=== PATIENT | male | born 1970 | race American Indian/Alaskan Native ===

== ENCOUNTER 2020-01-28 13:28 | Day surgery (SDC) | payer BC ==
[~2020-01-28] VITALS: Ht 193 cm; Wt 130.5 kg
[~2020-01-28 13:28] MED LIST: NO HOME MEDICATIONS
[2020-01-28] MEDS ORDERED: FLOMAX 0.40.4 MG/CAP PO (14:12)
[2020-01-28] MEDS ORDERED: PREVACID 30MG30 M1 PO (14:12)
[2020-01-28] MEDS ORDERED: LEXAPRO 10MG10 MG PO (14:14)
[2020-01-28 14:24] VITALS: BP 113/78; PULSE 77; TEMP 97.4
[2020-01-28 17:45] VITALS: TEMP 97.3
[2020-01-28 18:03] VITALS: BP 117/89; PULSE 54
--- NOTE | 2020-01-28 20:45 | NUR ---
Discharge eduction complete, patient verbalized understanding. Patient IV removed, patient understands [facility]. Patient taked to ED doors in wheelchair by this nurse. Patient left by private vehicle.
== END 2020-01-28 20:40 | disposition home or self-care (01) ==
LOC: SDCO 13:28
DX: N35.914 Unspecified anterior urethral stricture, male (principal); R31.0 Gross hematuria; J45.909 Unspecified asthma, uncomplicated; F32.9 Major depressive disorder, single episode, unspecified; Z88.2 Allergy status to sulfonamides; K21.9 Gastro-esophageal reflux disease without esophagitis; F41.9 Anxiety disorder, unspecified
CPT/HCPCS: C1769; C1894; J0690; J2704; J3010; J7120

== ENCOUNTER 2020-01-30 07:49 | Emergency (ER) | payer BC ==
[~2020-01-30] VITALS: Ht 193 cm; Wt 126.4 kg
[~2020-01-30 07:49] MED LIST changes: +FLOMAX 0.40.4 MG/CAP PO; +LEXAPRO 10MG10 MG PO; +PREVACID 30MG30 M1 PO
[2020-01-30 07:57] VITALS: BP 128/86; TEMP 98.4
[2020-01-30 08:49] VITALS: PULSE 64
== END 2020-01-30 08:49 | disposition home or self-care (01) ==
LOC: COL.ER 07:49
DX: J39.2 Other diseases of pharynx (principal); K21.9 Gastro-esophageal reflux disease without esophagitis; N40.0 Benign prostatic hyperplasia without lower urinary tract symptoms; Z98.890 Other specified postprocedural states
CPT/HCPCS: J1100

== ENCOUNTER 2020-03-14 15:18 | Inpatient (IN) | payer BC ==
[~2020-03-14] VITALS: Ht 193 cm; Wt 131.0 kg
[2020-03-14] MEDS ORDERED: PROAIR HFA0.09 MG/AC IH (15:41)
[2020-03-14 16:00] LABS: BASO % 0.2 % (0.0-2.0); EOS % 0.5 % (0-4.0); GRAN # 3.9 (1.4-6.5); GRAN % 68.7 % (42.2-75.2); HEMATOCRIT 42.1 % (42.0-52.0); HEMOGLOBIN 14.3 g/dl (13.5-18.0); LYMPH # 0.9 (1.2-3.4); LYMPH % 16.5 % (20.0-51.0); MEAN CELL VOLUME 86 fl (80.0-100.0); MEAN CORPUSCULAR HEMOGLOBIN 29 pg (27.0-31.0); MEAN CORPUSCULAR HGB CONC 34 g/dl (33.0-37.0); MEAN PLATELET VOLUME 9.7 fl (7.4-10.4); MONO # 0.8 (0.1-0.6); MONO % 13.9 % (1.7-9.3); PLATELET COUNT 157 K/mm3 (130-400); RED BLOOD COUNT 4.92 M/mm3 (4.20-5.60); REDCELL DISTRIBUTION WIDTH-CV 12.5 % (11.5-14.5)
[2020-03-14 16:39] LABS: ALANINE AMINOTRANSFERASE 35 U/L (4-49); ALBUMIN 4.5 gm/dL (3.5-5.0); ALKALINE PHOSPHATASE 91 U/L (50-136); ANION GAP 9 mmol/L (7-16); AST,SGOT 39 U/L (15-37); BILIRUBIN,TOTAL 0.5 mg/dL (0.0-1.0); BLOOD UREA NITROGEN 17 mg/dL (9-20); C-REACTIVE PROTEIN 4.9 mg/dL (0.0-0.9); CALCIUM 8.7 mg/dL (8.4-10.2); CARBON DIOXIDE 23 mmol/L (22-30); CHLORIDE 104 mmol/L (98-107); CREATININE, serum 0.85 (0.66-1.25); GLUCOSE 104 mg/dL (74-106); POTASSIUM 4.1 mmol/L (3.4-5.0); SODIUM 136 mmol/L (137-145); TOTAL PROTEIN 8.5 gm/dL (6.4-8.2)
[2020-03-14 16:58] LABS: TROPONIN-I < 0.012 ng/mL (0.000-0.035)
[2020-03-14 19:54] VITALS: BP 127/88; PULSE 85; TEMP 98.3
[2020-03-14 19:57] VITALS: BP 127/88; PULSE 85; TEMP 98.3
[2020-03-14] MEDS ORDERED: TYLENOL 500MG500 MG PO (20:09)
--- NOTE | 2020-03-14 20:32 | NUR ---
Admission assessment completed and pt oriented to room. Pt is afebrile at this time. Denies shortness of breath or pain. NS running at 125 ml/hr to IV in Left hand. Pt denies needs at this time. Will continue to monitor. Contact and droplet isolation in place.
[2020-03-15] VITALS: BP 129/80; PULSE 89; TEMP 98
[2020-03-15 04:50] VITALS: BP 126/74; PULSE 86; TEMP 98.3
--- NOTE | 2020-03-15 05:54 | NUR ---
Pt receiving IV antibiotics per orders. No complaints throughout night. Pt remains afebrile.
[2020-03-15 06:40] LABS: BASO % 0.2 % (0.0-2.0); EOS % 0.7 % (0-4.0); GRAN # 2.4 (1.4-6.5); GRAN % 58.1 % (42.2-75.2); HEMATOCRIT 38.9 % (42.0-52.0); HEMOGLOBIN 12.7 g/dl (13.5-18.0); LYMPH % 24.3 % (20.0-51.0); MEAN CELL VOLUME 88 fl (80.0-100.0); MEAN CORPUSCULAR HEMOGLOBIN 29 pg (27.0-31.0); MEAN CORPUSCULAR HGB CONC 33 g/dl (33.0-37.0); MEAN PLATELET VOLUME 10.2 fl (7.4-10.4); MONO # 0.7 (0.1-0.6); MONO % 16.5 % (1.7-9.3); PLATELET COUNT 149 K/mm3 (130-400); RED BLOOD COUNT 4.44 M/mm3 (4.20-5.60); REDCELL DISTRIBUTION WIDTH-CV 12.6 % (11.5-14.5)
[2020-03-15 06:54] LABS: CALCIUM 7.9 mg/dL (8.4-10.2); CREATININE, serum 0.85 (0.66-1.25); POTASSIUM 3.7 mmol/L (3.4-5.0)
[2020-03-15 10:41] VITALS: BP 136/81; PULSE 85; TEMP 98.6
--- NOTE | 2020-03-15 11:43 | NUR ---
Patient is alert and oriented, ambulate independently . denies any pain or SOA. currently afebrile. No cough at this time.
--- NOTE | 2020-03-15 16:19 | NUR ---
Cash Management Officer contacted patient by phone as he is in contact isolation. Patient lives in [place] with his parents, Bolivar and Liliya (ph#[phone]) and sees Dr. Bashir for primary care. Patient obtains medications from [facility] with no difficulties. Patient is employed at [employer] and is independent with ADLS. Patient does not use any DME. Patient does not have Advance Directives. Patient is not and next of kin are his parents. Patient plans to return home at discharge. SW will continue to follow as needed.
[2020-03-15 17:08] VITALS: BP 128/87; PULSE 83; TEMP 98.5
--- NOTE | 2020-03-15 19:33 | NUR ---
Today covid19 reswab show patient is still Positive. complain of dry cough wbc 4.2, pending blood culture. afibrile during rui shift. Infectious disease consulted, Dr Carlos.
--- NOTE | 2020-03-15 19:39 | NUR ---
Plt 71, liver enzymes elevated, patient complained of chest pain, and blood stain in her stool. Stool occult, GI panel, cdiff - awaiting sample, H&H WNL. CT order for chest pain. new order for protonic, maxipime. patient resting in room at the moment.
[2020-03-15 20:00] VITALS: BP 135/87; PULSE 87; TEMP 98.8
--- NOTE | 2020-03-15 20:00 | NUR ---
At time of assessment, patient is alert and oriented with no complaints of pain. He states he still become SOA when he gets up to the bathroom but does not appear to have an increased work of breathing at rest. He is satting 95% on RA. Lung sounds are clear but diminished and heart sounds are regular and slightly tachy. No edema is present. Patient is afebrile. No new concerns, will continue to monitor.
[2020-03-16] VITALS (7 sets, daily range): BP systolic 120–145; BP diastolic 68–87; PULSE 85–101; TEMP 98.6–100.7
--- NOTE | 2020-03-16 05:48 | NUR ---
Patient has had an uneventful night. TMAX of 99.4, for which 500 mg ES Tylenol was administered. No complaints of pain or increase SOA. Will continue to monitor.
--- NOTE | 2020-03-16 09:02 | NUR ---
complain of discomfort when taking deep breath.
--- NOTE | 2020-03-16 18:55 | NUR ---
Chest xray was redone today, there are no new development, it show LLL consolidation as 03/14. Headache of 09/28 was managed with tylenol 500Ml as needed. patient show less interest in food. resting in bed at this time.
--- NOTE | 2020-03-16 19:29 | NUR ---
Report received from RAVI Lemons. Pt resting in room at this time without complaint.
--- NOTE | 2020-03-16 19:52 | NUR ---
Assessment completed. Pt reports chills and mild headache. Oral temperature taken at 100.1. PRN Tylenol given per orders. No other abnormal findings noted. NS running to IV in left hand at 125 ml/hr, Zosyn running piggyback at 25 ml/hr. Will continue to monitor.
[2020-03-17 04:21] VITALS: BP 136/87; PULSE 84; TEMP 102.4
--- NOTE | 2020-03-17 05:26 | NUR ---
Pt has reported headaches throughout shift. Pt has also been reporting chills throughout night. 500 MG PO Tylenol given around 2000 after pt's temperature was 100.1 and reporting a headache, rated at 4/10. Another 1000 MG PO Tylenol given at 0445 after temperature was recorded at 102.4 and reporting headache, pain rating 5/10. Pt has received IV antibiotics and IV fluids throughout shift. Reports appetite remains poor. No complaints of shortness of breath. Reports mild discomfort with deep breaths.
[2020-03-17 06:42] LABS: BASO % 0.2 % (0.0-2.0); EOS % 0.2 % (0-4.0); GRAN # 2.8 (1.4-6.5); GRAN % 62.2 % (42.2-75.2); HEMATOCRIT 37.4 % (42.0-52.0); HEMOGLOBIN 12.3 g/dl (13.5-18.0); LYMPH # 1.1 (1.2-3.4); LYMPH % 24.8 % (20.0-51.0); MEAN CELL VOLUME 88 fl (80.0-100.0); MEAN CORPUSCULAR HEMOGLOBIN 29 pg (27.0-31.0); MEAN CORPUSCULAR HGB CONC 33 g/dl (33.0-37.0); MEAN PLATELET VOLUME 9.9 fl (7.4-10.4); MONO # 0.6 (0.1-0.6); MONO % 12.4 % (1.7-9.3); PLATELET COUNT 170 K/mm3 (130-400); RED BLOOD COUNT 4.27 M/mm3 (4.20-5.60); REDCELL DISTRIBUTION WIDTH-CV 12.5 % (11.5-14.5)
[2020-03-17 06:47] LABS: CREATININE, serum 0.9 (0.66-1.25); POTASSIUM 3.4 mmol/L (3.4-5.0)
[2020-03-17 08:27] VITALS: BP 125/78; PULSE 77; TEMP 98.1
--- NOTE | 2020-03-17 10:09 | NUR ---
Button Bradder attempted to contact the patient via room phone to follow up. He did not answer. Will attempt at a later time.
--- NOTE | 2020-03-17 10:32 | NUR ---
PT AOX4. DENIES PAIN. REPORTS MILD SOB WITH DEEP BREATHS. STEADY INDEPENDENT AMBULATION. ON RA. REPORTS YELLOW LOOSE STOOLS 2-3X A DAY. DENIES N/V, ABD CRAMPING. REPRTS IMPROVED APPETITE AND ATE 100% BREAKFAST. NO NEW CONCERNS
[2020-03-17 13:01] VITALS: BP 127/63; PULSE 66; TEMP 97.7
[2020-03-17 16:24] VITALS: BP 129/80; PULSE 88; TEMP 99.8
[2020-03-17 19:46] VITALS: BP 136/76; PULSE 84; TEMP 99
--- NOTE | 2020-03-17 20:10 | NUR ---
Pt assessment completed and documented. Pt resting in bed at this time. Pt alert and oriented x4. Denies pain. IVF infusing per orders to left hand IV site without complications. Pt denies any other needs at this time. Call light within reach. Will continue to monitor.
[2020-03-17 23:28] VITALS: BP 124/70; PULSE 70; TEMP 98.2
[2020-03-18 03:34] VITALS: BP 135/75; PULSE 65; TEMP 97.6
[2020-03-18 06:55] LABS: CALCIUM 8.7 mg/dL (8.4-10.2); CREATININE, serum 0.68 (0.66-1.25); POTASSIUM 4.1 mmol/L (3.4-5.0)
[2020-03-18 07:03] LABS: GRAN # 2.6 (1.4-6.5); GRAN % 68.6 % (42.2-75.2); HEMATOCRIT 37.1 % (42.0-52.0); HEMOGLOBIN 12.7 g/dl (13.5-18.0); LYMPH # 0.8 (1.2-3.4); LYMPH % 19.7 % (20.0-51.0); MEAN CELL VOLUME 85 fl (80.0-100.0); MEAN CORPUSCULAR HEMOGLOBIN 29 pg (27.0-31.0); MEAN CORPUSCULAR HGB CONC 34 g/dl (33.0-37.0); MEAN PLATELET VOLUME 9.5 fl (7.4-10.4); MONO # 0.4 (0.1-0.6); MONO % 11.2 % (1.7-9.3); PLATELET COUNT 189 K/mm3 (130-400); RED BLOOD COUNT 4.39 M/mm3 (4.20-5.60); REDCELL DISTRIBUTION WIDTH-CV 12.1 % (11.5-14.5)
--- NOTE | 2020-03-18 07:05 | NUR ---
Pt had uneventful shift. Pt rested well overnight. INT to left hand CDI. Pt denied pain throughout night. Pt denies any other needs. Call light within reach. Report given to RAVI Turner
--- NOTE | 2020-03-18 09:22 | NUR ---
Pt awake and alert this morning, no C/O pain, talkative and appropriate, shift assessments complete, left Pt call light in reach, bed in lowest position.
[2020-03-18 12:19] VITALS: BP 126/76; PULSE 65; TEMP 98.7
--- NOTE | 2020-03-18 18:40 | NUR ---
Pt resting in the room, no C/O pain / discomfort during the day, Pt states that he is able to breathe easier since starting medications. VS have remained stable.
--- NOTE | 2020-03-18 20:45 | NUR ---
Pt assessment completed and documented. Pt resting in bed at this time watching television. Pt alert and oriented x4. Denies pain. INT to left hand CDI. Pt requesting to take a shower at this time. Call light within reach. Will continue to monitor.
[2020-03-18 21:10] VITALS: BP 135/78; PULSE 68; TEMP 98
[2020-03-19] VITALS (7 sets, daily range): BP systolic 115–126; BP diastolic 64–78; PULSE 58–68; TEMP 97.2–98
--- NOTE | 2020-03-19 07:14 | NUR ---
Pt had uneventful shift. Pt states he did not get much sleep last night. Was able to take a shower before bed. Denied pain throughout the night. INT to left hand CDI. Pt denies any other needs at this time. Call light within reach. Report given to RAVI Turner
--- NOTE | 2020-03-19 09:20 | NUR ---
Pt awake and alert upon entry, no C/O pain at this time, talkative, shift assessments complete, left Pt call light in reach, bed in lowest position.
--- NOTE | 2020-03-19 19:11 | NUR ---
Pt resting in the room today, no C/O pain during the day, VS have remained stable.
--- NOTE | 2020-03-19 20:35 | NUR ---
Pt assessment completed and documented. Pt resting in bed at this time watching TV. Pt alert and oriented x4. INT to left hand CDI. VSS. Denies pain. Pt denies any other needs at this time. Call light within reach. Will continue to monitor
[2020-03-20 05:05] VITALS: BP 114/70; PULSE 58; TEMP 97.8
--- NOTE | 2020-03-20 05:10 | NUR ---
Pt states he was able to get some sleep overnight. Denied pain. INT to left hand infusing per orders. VSS. Denies any other needs. Call light within reach
[2020-03-20 07:46] VITALS: BP 116/74; PULSE 65; TEMP 97.9
--- NOTE | 2020-03-20 10:22 | NUR ---
Pt awake and alert this morning, no current C/O pain, talkative, shift assessments complete, left Pt call light in reach, bed in lowest position.
[2020-03-20 11:57] VITALS: BP 127/75; PULSE 68; TEMP 97.7
[2020-03-20] MEDS ORDERED: TYLENOL 500MG500 MG PO (12:07)
[2020-03-20] MEDS ORDERED: DECADRON6 MG PO (12:08)
--- NOTE | 2020-03-20 14:00 | NUR ---
Pt discharged to home, discussed discharge packet with Pt, answered all questions. Escorted Pt to entrance, Pt left via private transportation.
== END 2020-03-20 14:00 | disposition home or self-care (01) | DRG 177 ==
LOC: COL.ER 15:18 → MEDICAL 17:47 → PEDS 03-19 20:22
PROVIDERS: Emergency Medicine; Hospitalist; Physician Assistant; ADMIT Student in an Organized Health Care Education/Training Program
DX: U07.1 COVID-19 (principal); J18.9 Pneumonia, unspecified organism; K21.9 Gastro-esophageal reflux disease without esophagitis; F32.9 Major depressive disorder, single episode, unspecified; N40.0 Benign prostatic hyperplasia without lower urinary tract symptoms; J45.909 Unspecified asthma, uncomplicated; E66.9 Obesity, unspecified; Z87.891 Personal history of nicotine dependence
CPT/HCPCS: 99222-AI; 99231-AI; 99232-AI; 99239; J0456; J0696; J1650; J2543; J7030; J7050; J8540

== ENCOUNTER 2021-08-17 13:00 | Outpatient (RCR) | payer OTHER ==
[~2021-08-17 13:00] MED LIST changes: +DECADRON6 MG PO; +PROAIR HFA0.09 MG/AC IH; +TYLENOL 500MG500 MG PO
== END 2021-08-18 | disposition home or self-care (01) ==
LOC: MKS.ESL.PT
DX: M25.522 Pain in left elbow (principal)

== ENCOUNTER → 2021-10-16 | Outpatient (RCR) | payer OTHER | END | disposition still patient (30) | LOC: MKS.ESL.PT | DX: S42.402D Unspecified fracture of lower end of left humerus, subsequent encounter for fracture with routine healing (principal); X58.XXXD Exposure to other specified factors, subsequent encounter ==

== ENCOUNTER 2021-11-15 14:45 | Outpatient (RCR) | payer OTHER | END 2021-11-16 | disposition still patient (30) | LOC: MKS.ESL.PT | DX: S42.402A Unspecified fracture of lower end of left humerus, initial encounter for closed fracture (principal) ==

== ENCOUNTER 2021-12-15 14:45 | Outpatient (RCR) | payer OTHER | END 2021-12-16 | disposition home or self-care (01) | LOC: MKS.ESL.PT | DX: S42.402D Unspecified fracture of lower end of left humerus, subsequent encounter for fracture with routine healing (principal); W19.XXXD Unspecified fall, subsequent encounter ==

== ENCOUNTER 2022-01-12 12:45 | Outpatient (RCR) | payer OTHER | END 2022-01-16 | disposition home or self-care (01) | LOC: MKS.ESL.PT | DX: M25.522 Pain in left elbow (principal) ==

== ENCOUNTER 2022-02-09 14:00 | Outpatient (RCR) | payer OTHER | END 2022-02-15 | disposition still patient (30) | LOC: WSPT | DX: S42.402D Unspecified fracture of lower end of left humerus, subsequent encounter for fracture with routine healing (principal); W19.XXXD Unspecified fall, subsequent encounter ==